=== PATIENT | female | born 1965 | race Caucasian/White ===

== ENCOUNTER 2017-07-05 16:53 | Emergency (ER) | payer OTHER ==
[~2017-07-05] VITALS: Ht 170.2 cm; Wt 100.0 kg
[~2017-07-05 16:53] MED LIST: BENZ1CAP51 PO; KETO10 PO; VENTAER INH
[2017-07-05 16:55] VITALS: BP 205/91; PULSE 85; RESP 18; TEMP 98.4; O2SAT 97
--- NOTE | 2017-07-05 20:34 | PD ---
HPI Chief Complaint: Abdominal Pain Time Seen by Provider: 20:24 Travel History International Travel<30 days: No Contact w/Intl Traveler<30days: No Traveled to known affect area: No History of Present Illness HPI 52-year-old female presents to the emergency department by private transportation in the care of her family from [facility] emergency department for pelvic ultrasound. Patient has been having intermittent right lower quadrant abdominal discomfort and 2 days of intermittent vaginal bleeding without passing of clots or saturating a pad within 1 hour period. Patient went to the emergency department for complaint of 710 pain laboratory work was found to be in normal range including a CBC complete metabolic panel urinalysis and quantitative hCG and a CT abdomen and pelvis revealed bilateral adnexal severely cystic masses with recommendation for ultrasound. Patient was sent to the emergency department from [place] to [facility] in order to have an ultrasound. Patient states she is perimenopausal and has not had any vaginal bleeding until yesterday and today for the past 2 years. Patient is followed annually by her primary care and 1 year ago had an ultrasound that was normal reportedly and has not had any abnormal Pap smears. Patient has history of hypertension previous D&C and cholecystectomy. Patient denies fever chills nausea vomiting dysuria frequency urgency flank pain hematuria diarrhea or constipation. PFSH Past Medical History Narrative Medical Hypertension menopausal D&C cholecystectomy; no tobacco use; nursing notes reviewed Asthma: Yes Diminished Hearing: No Hypertension: Yes Menopausal: Yes : 2 Para: 1 Past Surgical History Cholecystectomy: Yes Social History Alcohol Use: No Tobacco Use: No Substance Use: No Allergies-Medications (Allergen,Severity, Reaction): Coded Allergies: No Known Allergies (Unverified , 07/05/17) Reported Meds & Prescriptions Reported Meds & Active Scripts Active Zofran Odt (Ondansetron Odt) 4 Mg Tab 4 Mg SL Q6HR PRN Percocet (Oxycodone-Acetaminophen) 5-325 mg Tab 1 Tab PO Q6H PRN Anaprox DS (Naproxen Sodium) 550 Mg Tab 550 Mg PO Q12HR PRN Review of Systems Except as stated in HPI: all other systems reviewed are Neg Physical Exam Narrative GENERAL: Well-developed well-nourished female no acute distress or respiratory distress SKIN: Warm and dry. HEAD: Normocephalic. EYES: No scleral icterus. No injection or drainage. NECK: Supple, trachea midline. No JVD or lymphadenopathy. CARDIOVASCULAR: Regular rate and rhythm without murmurs, gallops, or rubs. RESPIRATORY: Breath sounds equal bilaterally. No accessory muscle use. GASTROINTESTINAL: Abdomen soft, right lower quadrant tenderness to palpation without guarding or rebound, nondistended. Pelvic exam: Normal external exam no redness induration or lesion; speculum exam scant blood no clots no tissue cervical loss is closed, bimanual exam no cervical motion tenderness no adnexal mass or tenderness no uterine enlargement. MUSCULOSKELETAL: No cyanosis, or edema. BACK: Nontender without obvious deformity. No CVA tenderness. Data Data Last Documented VS Vital Signs Date Time Temp Pulse Resp B/P (MAP) Pulse Ox O2 Delivery O2 Flow Rate FiO2 07/05/17 16:55 98.4 85 18 205/91 (129) 97 Room Air Orders Orders Us Pelvis Comp W Dop Transvag (07/05/17 20:30) Ketorolac Inj (Toradol Inj) (07/06/17 00:15) Oxycodone-Acetamin 5-325 Mg (Percocet (07/06/17 00:15) Ed Discharge Order (07/06/17 00:28) MDM Medical Decision Making Medical Screen Exam Complete: Yes Emergency Medical Condition: Yes Medical Record Reviewed: Yes Interpretation(s) Vital Signs Date Time Temp Pulse Resp B/P (MAP) Pulse Ox O2 Delivery O2 Flow Rate FiO2 07/05/17 16:55 98.4 85 18 205/91 (129) 97 Room Air pelvic US: CONCLUSION: 1. Endometrium is heterogeneous and abnormally thickened in this patient with postmenopausal bleeding. It measures 12 mm. No focal endometrial mass is identified. Differential diagnostic considerations include endometrial hyperplasia, carcinoma, or polyp. 2. There are mildly complex ovarian cystic lesions bilaterally, as above. These measure up to 4.7 cm. Suggest followup ultrasound to confirm stability. Art Cisse MD on July 05, 2017 at 23:31 Board Certified Radiologist. This report was verified electronically. Differential Diagnosis Pelvic mass, malignancy, ovarian cyst, menopause, dysfunctional uterine bleeding Narrative Course Ultrasound of pelvis ordered Ultrasound resulted and identified to have bilateral cystic adnexa with good blood flow to each ovary and endometrial thickening requiring close GEOLOGY TECHNICIAN follow- up as an outpatient patient given one-time dose of Toradol 60 mg IM and Percocet 5/325; patient given copies of her ultrasound report and CAT scan report and encouraged to follow-up with her primary care provider for immediate referral to GEOLOGY TECHNICIAN for further evaluation of findings on ultrasound. Patient understands and will follow up with her primary care also given the name of on- call GEOLOGY TECHNICIAN Dr. Parada Diagnosis Primary Impression: Ovarian cyst Additional Impression: Endometrial hyperplasia Referrals: [facility] P[employer] Operator call for appointment Trash [employer]or GEOLOGY TECHNICIAN Dr Parada call office to schedule appointment Departure Forms: Tests/Procedures, Work Release Special Instructions: no work x 2 days Med/Other Pt SpecificInfo: Prescription(s) given Scripts Ondansetron Odt (Zofran Odt) 4 Mg Tab 4 MG SL Q6HR Y for Nausea/Vomiting, #10 TAB 0 Refills Prov: Shasta Espino MD 07/06/17 Oxycodone-Acetaminophen (Percocet) 5-325 mg Tab 1 TAB PO Q6H Y for PAIN, #7 TAB 0 Refills Prov: Shasta Espino MD 07/06/17 Naproxen Sodium DS (Anaprox DS) 550 Mg Tab 550 MG PO Q12HR Y for PAIN GREATER THAN 5, #15 TAB 0 Refills Prov: Shasta Espino MD 07/06/17 Disposition: 01 DISCHARGE HOME Condition: Stable Shasta Espino MD Jul 05, 2017 20:34
--- NOTE | 2017-07-05 23:38 | RADRPT ---
EXAM DATE/TIME: 07/05/2017 22:03 [facility] COMPARISON: CT ABDOMEN & PELVIS W CONTRAST, July 05, 2017, 13:42. INDICATIONS : Postmenopausal Bleeding/Mass seen on CT. MEDICAL HISTORY : . SURGICAL HISTORY : None. ENCOUNTER: Initial ACUITY: 2 days PAIN SCORE: 0/10 LOCATION: MEASUREMENTS: UTERUS: 8.8 x 7.8 x 6.3 cm ENDOMETRIAL STRIPE: 12 mm RIGHT OVARY: 5.3 x 5.3 x 5.1 cm LEFT OVARY: 3.6 x 3.4 x 2.3 cm FINDINGS: UTERUS: Uterus is retroverted with heterogeneous myometrium. No discrete myometrial mass is identified. Endom etrium is mildly heterogeneous but no focal abnormality is seen. RIGHT OVARY: There is a cystic lesion in the right ovary containing a thin eccentric septation. The cystic lesion measures 4.7 x 4.5 x 4.0 cm. LEFT OVARY: There is a cystic lesion in the left ovary with a hypoechoic nodular area along the periphery. The le andre measures 2.9 x 2.6 x 2.5 cm. The hypoechoic area measures up to 1.5 cm and demonstrates no inter nal color flow. MISCELLANEOUS: There is trace free fluid in the cul-de-sac. CONCLUSION: 1. Endometrium is heterogeneous and abnormally thickened in this patient with postmenopausal bleeding . It measures 12 mm. No focal endometrial mass is identified. Differential diagnostic considerations include endometrial hyperplasia, carcinoma, or polyp. 2. There are mildly complex ovarian cystic lesions bilaterally, as above. These measure up to 4.7 cm. Suggest followup ultrasound to confirm stability. Art Cisse MD on July 05, 2017 at 23:31 Board Certified Radiologist. This report was verified electronically.
[2017-07-06] MEDS ORDERED: KETOROLAC TROMETHAMINE 60 MG/2 ML (IM) VIAL IM ONE (00:15)
[2017-07-06] MEDS ORDERED: oxyCODONE/ACETAMINOPHEN 5 MG/325 MG TAB PO ONE (00:15)
[2017-07-06] MEDS ORDERED: PERC5TAB12 PO (00:32)
[2017-07-06] MEDS ORDERED: NAPR5TAB5 PO (00:32)
[2017-07-06] MEDS ORDERED: ZOFR4TAB3 SL (00:32)
[2017-07-18] MEDS ORDERED: AMLO5TAB2 PO (18:59)
[2017-07-18] MEDS ORDERED: CYTO200T PO (19:36)
[2017-07-18] MEDS ORDERED: DICY20TA10 PO (19:36)
== END 2017-07-06 00:51 | disposition home or self-care (01) ==
LOC: NEPC 16:53
DX: N83.209 Unspecified ovarian cyst, unspecified side (principal); N85.00 Endometrial hyperplasia, unspecified; I10 Essential (primary) hypertension; J45.909 Unspecified asthma, uncomplicated; Z90.49 Acquired absence of other specified parts of digestive tract
CPT/HCPCS: 74177; 76830; 76856; 80053; 84702; 85025; 85610; 85730; 93975; 96372; 99284; J1885; Q9967